=== PATIENT | female | born 1985 | race Caucasian/White ===

== ENCOUNTER 2021-06-02 17:22 | Emergency (ER) | payer OTHER ==
[2021-06-02 19:50] VITALS: BP 148/75; PULSE 64
== END 2021-06-02 20:13 | disposition home or self-care (01) ==
LOC: MW.ED 17:22
DX: S93.601A Unspecified sprain of right foot, initial encounter (principal); X58.XXXA Exposure to other specified factors, initial encounter
CPT/HCPCS: 73590-26-RT; 73590-RT; 99281; 99283